=== PATIENT | female | born 1955 | race American Indian/Alaskan Native ===

== ENCOUNTER 2017-07-15 11:42 | Emergency (ER) | payer OTHER ==
[2017-07-15 12:31] LABS: Hematocrit 41.8 % (30.3-42.9); Hemoglobin 13.5 gm/dl (10.1-14.3); Mean Corpuscular HGB Conc 32 % (30-34); Mean Corpuscular Hemoglobin 31 pg (28-32); Mean Corpuscular Volume 97 fl (79-97); Platelet Count 283 K/mm3 (140-440); Red Blood Count 4.31 M/mm3 (3.65-5.03); Red Cell Distribution Width 13.5 % (13.2-15.2); White Blood Count 6.9 K/mm3 (4.5-11.0)
[2017-07-15 12:41] LABS: Anion Gap 18 mmol/L; BUN/Creatinine Ratio 10; Blood Urea Nitrogen 5 mg/dL (7-17); Carbon Dioxide 25 mmol/L (22-30); Chloride 103.3 mmol/L (98-107); Glucose 83 mg/dL (65-100); Potassium 3.8 mmol/L (3.6-5.0); Sodium 142 mmol/L (137-145)
[2017-07-15] MEDS ORDERED: CATAPRES PO ONE (16:17)
[2017-07-15] MEDS ORDERED: XOPENEX IH ONE (16:18)
[2017-07-15] MEDS ORDERED: ATROVENT IH ONE (16:18)
--- NOTE | 2017-07-15 16:23 | Emergency Department Report ---
HPI - General Chief Complaint: High BP Time Seen by Provider: 07/15/17 16:01 - HPI HPI: Room 23 The patient is a 62-year-old female presenting with a chief complaint of hypertension and URI symptoms. The patient states for the past 2 weeks she's had URI symptoms which includes a cough productive of whitish sputum, wheezing no nausea vomiting and chills. Patient states this feels similar to when she was diagnosed with bronchitis last year. Her daughter is also sick with the same symptoms. The patient states she decided to go to clinic today for evaluation and while there she was noted to be hypertensive. Patient was subsequent sent to the ED for evaluation. Patient complains of a slight headache and gives it a score of 1.5/10 Location: [See above] Duration: 2 weeks Quality: Headache Severity: 1.5/10 Modifying factors: [see above] Context: [see above] Mode of transportation: [not driving] ED Past Medical Hx - Past Medical History Previous Medical History?: No - Surgical History Past Surgical History?: No - Family History Family history: no significant - Social History Smoking Status: Former Smoker (none 2 years) Substance Use Type: Alcohol (occasional), Marijuana - Medications Home Medications: Home Medications Medication Instructions Recorded Confirmed Last Taken Type ALBUTEROL Inhaler [Proair] 2 puff IH QID PRN #1 inhalation 07/15/17 Unknown Rx Azithromycin [Zithromax Z-BERONICA] 0 mg PO DAILY #6 tab 07/15/17 Unknown Rx Benzonatate [Tessalon Perle] 100 mg PO TID PRN #30 capsule 07/15/17 Unknown Rx amLODIPine [Norvasc] 5 mg PO DAILY #90 tab 07/15/17 Unknown Rx traMADol [Ultram] 50 mg PO Q6HR PRN #10 tablet 07/15/17 Unknown Rx ED Review of Systems ROS: Stated complaint: BLOOD PRESSURE ELEVATED Other details as noted in HPI Constitutional: denies: fever Eyes: denies: eye pain ENT: congestion Respiratory: cough, wheezing. denies: shortness of breath Cardiovascular: denies: chest pain Gastrointestinal: nausea, vomiting Genitourinary: denies: dysuria Musculoskeletal: denies: back pain Neurological: headache Physical Exam - Physical Exam Vital Signs: Vital Signs 07/15/17 07/15/17 11:53 15:40 Temperature 98.8 F 98.5 F Pulse Rate 104 H 72 Respiratory 18 18 Rate Blood Pressure 188/94 Blood Pressure 207/90 [Right] O2 Sat by Pulse 100 100 Oximetry Physical Exam: GENERAL: The patient is well-developed well-nourished female lying on stretcher not appearing to be in acute distress. [] HEENT: Normocephalic. Atraumatic. Extraocular motions are intact. Patient has moist mucous membranes. NECK: Supple. Trachea midline CHEST/LUNGS: Trace occasional expiratory wheeze. There is no respiratory distress noted. HEART/CARDIOVASCULAR: Regular. There is no tachycardia. There is no gallop rub or murmur. ABDOMEN: Abdomen is soft, nontender. Patient has normal bowel sounds. There is no abdominal distention. SKIN: There is no rash. There is no edema. There is no diaphoresis. NEURO: The patient is awake, alert, and oriented. The patient is cooperative. The patient has normal speech. No focal neurological findings. Cranial nerves II through XII grossly intact, no drift, tobacco feeder catcher 5+/5 bilaterally MUSCULOSKELETAL: There is no evidence of acute injury. ED Course Vital Signs 07/15/17 07/15/17 11:53 15:40 Temperature 98.8 F 98.5 F Pulse Rate 104 H 72 Respiratory 18 18 Rate Blood Pressure 188/94 Blood Pressure 207/90 [Right] O2 Sat by Pulse 100 100 Oximetry ED Medical Decision Making - Lab Data Result diagrams: 07/15/17 12:03 07/15/17 12:03 - Radiology Data Radiology results: report reviewed (CT head), image reviewed (CT head, chest x- ray) interpreted by me: Chest x-ray-no focal infiltrates, no pneumothorax FINAL REPORT PROCEDURE: CT HEAD/BRAIN WO CON TECHNIQUE: Computerized tomography of the head was performed without contrast material. HISTORY: hypertension, headache COMPARISON: None FINDINGS: Brain volume is age appropriate. Subtle periventricular small vessel disease is present. There is no intra or extra-axial hemorrhage. There is no CT evident acute infarction. There is no remote infarct, mass effect or shift of midline structures. The skull base and calvarium are intact. Partially included on the examination is chronic left maxillary sinusitis. There is left EAC soft tissue density, likely cerumen.. IMPRESSION: No CT evident acute intracranial process. Mild small vessel disease. Partially imaged chronic left maxillary sinusitis. Soft tissue density within the left external auditory canal nonspecific in appearance possibly cerumen. Transcribed By: JULIETA Dictated By: JAIME BLACK MD Electronically Authenticated By: JAIME BLACK MD Signed Date/Time: 07/15/171253 DD/ 53 TD/TT: 07/15/171253 - Differential Diagnosis URI, bronchitis, ICH, hypertension Critical care attestation.: If time is entered above; I have spent that time in minutes in the direct care of this critically ill patient, excluding procedure time. ED Disposition Clinical Impression: Acute bronchitis, Hypertension Disposition: TO HOME OR SELFCARE Is pt being admited?: No Does the pt Need Aspirin: No Condition: Stable Instructions: Acute Bronchitis (ED), Hypertension (ED) Additional Instructions: Return to the emergency department immediately should you develop worsening symptoms, fever, inability to tolerate food or liquid or any other concerns. Prescriptions: ALBUTEROL Inhaler [Proair] 2 puff IH QID PRN #1 inhalation PRN Reason: Shortness Of Breath amLODIPine [Norvasc] 5 mg PO DAILY #90 tab Azithromycin [Zithromax Z-BERONICA] 0 mg PO DAILY #6 tab Benzonatate [Tessalon Perle] 100 mg PO TID PRN #30 capsule PRN Reason: Cough traMADol [Ultram] 50 mg PO Q6HR PRN #10 tablet PRN Reason: Pain Referrals: PRIMARY CARE, [Primary Care Provider] - 3-5 Days YADI BETTENCOURT MD [Staff Physician] - 3-5 Days [facility] [Outside] - 3-5 Days Time of Disposition: 17:33
--- NOTE | 2017-07-15 16:57 | Cat Scan Report ---
FINAL REPORT PROCEDURE: CT HEAD/BRAIN WO CON TECHNIQUE: Computerized tomography of the head was performed without contrast material. HISTORY: hypertension, headache COMPARISON: None FINDINGS: Brain volume is age appropriate. Subtle periventricular small vessel disease is present. There is no intra or extra-axial hemorrhage. There is no CT evident acute infarction. There is no remote infarct, mass effect or shift of midline structures. The skull base and calvarium are intact. Partially included on the examination is chronic left maxillary sinusitis. There is left EAC soft tissue density, likely cerumen.. IMPRESSION: No CT evident acute intracranial process. Mild small vessel disease. Partially imaged chronic left maxillary sinusitis. Soft tissue density within the left external auditory canal nonspecific in appearance possibly cerumen.
[2017-07-15] MEDS ORDERED: FIORICET PO ONE (17:31)
[2017-07-15 17:52] VITALS: BP 155/73
--- NOTE | 2017-07-15 22:14 | XRay Report ---
FINAL REPORT EXAM: XR CHEST ROUTINE 2V HISTORY: cough TECHNIQUE: Two views of the chest were performed Comparison: None FINDINGS: Heart size is normal. Lungs are clear and well expanded without focal infiltrate or consolidation. Lungs are mildly hyperlucent and hyperexpanded with slight flattening of the hemidiaphragms and increased retrosternal clear space suggestive of mild underlying emphysema. Imaged axial skeleton is unremarkable. There is minimal thoracic spondylosis. IMPRESSION: Mildly hyperlucent lungs suggestive of mild underlying emphysema. Otherwise, no acute cardiopulmonary disease.
== END 2017-07-15 18:05 | disposition home or self-care (01) ==
LOC: ED 11:42
DX: J20.9 Acute bronchitis, unspecified (principal); I10 Essential (primary) hypertension; F12.10 Cannabis abuse, uncomplicated
CPT/HCPCS: 36415; 70450; 71020; 80048; 85027; 94640